=== PATIENT | male | born 1985 | race Caucasian/White ===

== ENCOUNTER 2024-07-09 20:10 | Emergency (ER) | payer OTHER ==
[~2024-07-09] VITALS: Ht 180.3 cm; Wt 108.9 kg
[2024-07-09] MEDS: LIDOCAINE 1% INJ 50 ML MDV IJ STA (21:20)
[2024-07-09] MEDS: TDAP [DIPH/PERTUSSIS/TET] 0.5 ML VIAL IM ONE (21:30)
[2024-07-09] MEDS ORDERED: TDAP [DIPH/PERTUSSIS/TET] 0.5 ML VIAL IM ONE (22:32)
[2024-07-09] MEDS ORDERED: LIDOCAINE 1% INJ 50 ML MDV IJ ONE (22:32)
[2024-07-09 23:26] VITALS: BP 118/78; TEMP 98; O2SAT 99
== END 2024-07-09 23:27 | disposition home or self-care (01) ==
LOC: ER 20:22
DX: S61.011A Laceration without foreign body of right thumb without damage to nail, initial encounter (principal); W26.8XXA Contact with other sharp object(s), not elsewhere classified, initial encounter; Y93.89 Activity, other specified; Y92.89 Other specified places as the place of occurrence of the external cause; Y99.8 Other external cause status
CPT/HCPCS: 12001; 90471; 90715; 99283; J3490

== ENCOUNTER 2024-07-19 16:26 | Emergency (ER) | payer OTHER ==
[~2024-07-19] VITALS: Ht 180.3 cm; Wt 109.8 kg
[2024-07-19 17:22] VITALS: BP 135/79; TEMP 98.5
[2024-07-19 17:45] VITALS: O2SAT 98
== END 2024-07-19 18:50 | disposition home or self-care (01) ==
LOC: ER 16:29
DX: S61.012D Laceration without foreign body of left thumb without damage to nail, subsequent encounter (principal); Z48.02 Encounter for removal of sutures; X58.XXXD Exposure to other specified factors, subsequent encounter